=== PATIENT | female | born 1965 | race Caucasian/White ===

== ENCOUNTER 2021-01-20 10:00 | Outpatient (CLI) | payer OTHER | END 2021-01-20 10:30 | disposition home or self-care (01) | LOC: PPH VACUNA 10:00 | PROVIDERS: ATTEND Emergency Medicine Pediatric Emergency Medicine | DX: Z23 Encounter for immunization (principal) ==

== ENCOUNTER → 2021-05-12 | Emergency (ER) | payer OTHER ==
[~2021-05-12] VITALS: Ht 154.9 cm; Wt 68.0 kg
[~2021-05-12] MED LIST: DICLOFENAC POTA50 MG PO; ORPHENADRINE C100 MG PO; TENORMIN50 M1 PO
== END | disposition home or self-care (01) ==
LOC: ER 12:35
DX: N20.0 Calculus of kidney (principal); R10.32 Left lower quadrant pain; I10 Essential (primary) hypertension